=== PATIENT | male | born 1960 | race Caucasian/White ===

== ENCOUNTER 2017-04-04 12:49 | Inpatient (IN) | payer MEDICAID ==
[~2017-04-04] VITALS: Ht 165.1 cm; Wt 83.9 kg
--- NOTE | 2017-04-04 12:51 | NUR ---
PATIENT AMBUALTED TO BED 10.
--- NOTE | 2017-04-04 12:52 | NUR ---
56/M C/O CHEST PAIN RADIATES TO BILATERAL SHOULDER THIS AM .HX HTN & CVA WITH RIGHT SIDED WEAKNESS.DENIES N/V/D; SKIN IS PINK/WARM/DRY; AAOX4 AMB WITH WALKER. LUNGS CLEAR BL; HR EVEN AND REGULAR; PATIENT STATES PAIN OF 0/10 AT THIS TIME; PATIENT POSITIONED FOR COMFORT; HOB ELEVATED; BEDRAILS UP X2; BED DOWN. ER MD MADE AWARE OF PT STATUS.
--- NOTE | 2017-04-04 12:53 | NUR ---
Patient being evaluated by physician at bedside.
[2017-04-04 12:59] VITALS: BP 159/100
[2017-04-04] MEDS ORDERED: ASPI81CT89 PO (13:01)
[2017-04-04] MEDS ORDERED: KETOROLAC 30 MG/ML VIAL IM ONE (13:15)
[2017-04-04 13:47] LABS: BASOPHILS # (AUTO) 0.1 K/uL (0.00-0.22); BASOPHILS % (AUTO) 1.5 % (0.0-2.0); EOSINOPHILS # (AUTO) 0.5 K/uL (0-0.4); EOSINOPHILS % (AUTO) 5.2 % (0.0-4.0); HEMATOCRIT 42.7 % (36-52); HEMOGLOBIN 14.8 g/dL (12.0-18.0); LYMPHOCYTES # (AUTO) 2.6 K/uL (2.0-11.5); LYMPHOCYTES % (AUTO) 26.8 % (20.5-51.1); MEAN CORPUSCULAR HEMOGLOBIN 29 pg (27-31); MEAN CORPUSCULAR HGB CONC 35 g/dL (33-37); MEAN CORPUSCULAR VOLUME 84 fL (80-94); MONOCYTES # (AUTO) 1.3 K/uL (0.8-1.0); NEUTROPHILS # (AUTO) 5.2 K/uL (1.8-7.7); NEUTROPHILS % (AUTO) 53.5 % (42.2-75.2); PLATELET COUNT (AUTO) 271 K/uL (140-450); RED BLOOD CELL COUNT(AUTO) 5.06 MIL/uL (4.20-6.10); WHITE BLOOD COUNT (AUTO) 9.7 K/uL (4.8-10.8)
[2017-04-04 14:08] LABS: ALBUMIN 3.4 g/dL (3.4-5.0); ANION GAP 12.7 (8-16); CARBON DIOXIDE 24.4 mmol/L (21-32); CREATININE 0.7 mg/dL (0.7-1.3); POTASSIUM 4.1 mmol/L (3.5-5.1); TOTAL BILIRUBIN 0.6 mg/dL (0.0-1.0)
[2017-04-04 14:14] LABS: CREATINE KINASE MB 1.2 ng/mL (0-3.6)
[2017-04-04] MEDS ORDERED: ASPIRIN 325 MG TAB PO ONE (14:35)
[2017-04-04] MEDS: NACL 0.9% 1,000 ML IV SCH (15:34)
[2017-04-04] MEDS ORDERED: LORazepam 0.5 MG TAB PO PRN (15:35)
[2017-04-04] MEDS ORDERED: MORPHINE SULFATE 2 MG/ML SYR IV PRN (15:35)
[2017-04-04] MEDS ORDERED: ACETAMINOPHEN 325 MG TAB PO PRN (15:35)
--- NOTE | 2017-04-04 16:03 | NUR ---
Patient will be admitted to care of DR COTA. Admited to TELE. Will go to room 110A. Belongings list completed. Report to MARIELENA DELGADO.
[2017-04-04 16:08] VITALS: BP 163/102
--- NOTE | 2017-04-04 16:08 | NUR ---
RECEIVED PT VIA [employer]. ASSISTED PT TO YELLOW GOWN, SOCKS, BRACELET, AND PLACED FALL PRECAUTION SIGN OUTSIDE THE DOOR. PLACED CYLINDER LOADER. PT STABLE AT THIS TIME. NO S/S OF RESPIRATORY DISTRESS OR DISCOMFORT. B/P 163/102, HR 77, SPO2 97, TEMP 97.8, RR20 AND NO PAIN AT THIS TIME. DX: MILD CHEST PAIN. HX: FALLS AND STROKE 6 MONTHS AGO. IV RIGHT FOREARM 20 DARCY. AOX4. SKIN IS INTACT. PT NEEDS ASSISTANCE WHEN TRANSFERRING AND AMBULATING. CALL LIGHT WITHIN REACH. SAFETY/FALL PRECAUTIONS IN PLACE. WILL CONTINUE TO MONITOR.
[2017-04-04] MEDS ORDERED: HYDROcodone/APAP 7.5/325 MG 1 TAB PO PRN (16:10)
[2017-04-04 16:12] LABS: AMYLASE 46 U/L (25-115); LIPASE 84 U/L (73-393)
[2017-04-04 16:16] LABS: CHOL/HDL RATIO 4.1 (1-4.5); MAGNESIUM 1.8 mg/dL (1.8-2.4)
[2017-04-04 16:35] LABS: APPEARANCE,URINE CLEAR (CLEAR); BILIRUBIN,URINE NEGATIVE (NEGATIVE); BLOOD, URINE NEGATIVE (NEGATIVE); COLOR,URINE YELLOW (YELLOW); LEUKOCYTE ESTERASE ,URINE NEGATIVE (NEGATIVE); NITRITE, URINE NEGATIVE (NEGATIVE); PH,URINE 6.5 (5.0-9.0); UGLUCOSE NEGATIVE (NEGATIVE)
[2017-04-04 16:38] LABS: PHOSPHORUS 2.8 mg/dL (2.5-4.9); THYROID STIMULATING HORMONE < 0.01 uIU/mL (0.34-3.74)
[2017-04-04 16:43] LABS: BARBITURATE, URINE POS. ng/ml (NEG <=200); BENZODIAZEPINE, URINE NEG. ng/mL (NEG <=200); CANNABINOID, URINE NEG. ng/mL (NEG <=50); COCAINE, URINE NEG. ng/mL (NEG <=300); OPIATE, URINE NEG. ng/mL (NEG <=2000); PHENCYCLIDINE SCREEN,URINE NEG. ng/mL (NEG <=25)
--- NOTE | 2017-04-04 16:45 | NUR ---
PT ASKING FOR A PHONE IN THE ROOM AND SOME FOOD. PROVIDED PHONE AND EDUCATED ON HOW TO USE IT. PT ATE A TUNA SANDWICH, WATER, 2% MILK, AND JELLO. PT RESTING AT THIS TIME. CALL LIGHT WITHIN REACH. WILL CONTINUE TO MONITOR.
[2017-04-04] MEDS ORDERED: ENALAPRILAT 2.5 MG/2 ML VIAL IVP SCH (17:30)
--- NOTE | 2017-04-04 18:00 | NUR ---
PT RESTING IN BED. MEDICATIONS ADMINISTERED AND WELL TOLERATED. CALL LIGHT WITHIN REACH. SAFETY/FALL PRECAUTIONS IN PLACE. WILL CONTINUE TO MONITOR.
[2017-04-04 19:00] VITALS: BP 146/92
--- NOTE | 2017-04-04 19:15 | NUR ---
PT STABLE RESTING IN BED. PT ENDORSED TO TOOLROOM ATTENDANT NURSE.
--- NOTE | 2017-04-04 19:16 | NUR ---
RECEIVED BESIDE REPORT FROM DAY SHIFT NURSE DANNY RN, PT STABLE, NO DISTRESS NOTED, IV TO R FA 20G, SL, PATENT, PT ON 3LPM O2 VIA NC, NO SOB, REPORTED HAVING NO PAIN AT THIS MOMENT, INITIAL ASSESSMENT DONE, ALL SAFETY PRECAUTION MET, WILL CONTINUE TO MONITOR.
[2017-04-04 20:00] VITALS: BP 149/89
[2017-04-04] MEDS: SIMVASTATIN 20 MG TAB PO SCH (21:00)
[2017-04-04] MEDS: METOPROLOL 25 MG TAB PO SCH (21:00)
--- NOTE | 2017-04-04 21:00 | NUR ---
DUE MEDICATION GIVEN, PT TOLERATED WELL, NO DISTRESS NOTED, CALL LIGHT WITHIN REACH.
--- NOTE | 2017-04-04 21:25 | NUR ---
PT DAUGHTER CALLED, FLOWER, DAUGHTER TALKED TO PT ON PHONE.
--- NOTE | 2017-04-04 21:51 | NUR ---
PT C/O HEADACHE 07/02, TYLENOL GIVEN, PT TOLERATED WELL, NO DISTRESS NOTED, CALL LIGHT WITHIN REACH, WILL CONTINUE TO MONITOR.
[2017-04-04 22:16] LABS: PROTHROMBIN TIME 10.6 secs (10.8-13.4)
--- NOTE | 2017-04-04 22:51 | NUR ---
CHECKED ON PT, PT SLEEPING, NO DISTRESS NOTED, PT SLEEPING, NO DISTRESS NOTED, CALL LIGHT WITHIN REACH, WILL CONTINUE TO MONITOR.
[2017-04-05] VITALS: BP 141/72
--- NOTE | 2017-04-05 00:02 | NUR ---
CHECKED ON PT, PT SLEEPING, NO DISTRESS NOTED, EASY TO AROUSE, PT STATED HAVING NO PAIN AT THIS MOMENT, CALL LIGHT WITHIN REACH, WILL CONTINUE TO MONITOR.
--- NOTE | 2017-04-05 02:16 | NUR ---
CHECKED ON PT, PT SLEEPING, NO DISTRESS NOTED, CALL LIGHT WITHIN REACH, WILL CONTINUE TO MONITOR.
[2017-04-05 04:00] VITALS: BP 132/73
--- NOTE | 2017-04-05 04:02 | NUR ---
CHECKED ON PT, PT SLEEPING, NO DISTRESS NOTED, PT TOOK OF NC, NO SOB, PO2 AT 96%, PT STABLE, CALL LIGHT WITHIN REACH, WILL CONTINUE TO MONITOR.
--- NOTE | 2017-04-05 04:10 | NUR ---
PT AMBULATED TO BATHROOM AND BACK TO BED, NO DISTRESS NOTED, TOLERATED WELL, CALL LIGHT WITHIN REACH, WILL CONTINUE TO MONITOR.
[2017-04-05 06:31] LABS: BASOPHILS # (AUTO) 0.1 K/uL (0.00-0.22); EOSINOPHILS # (AUTO) 0.7 K/uL (0-0.4); EOSINOPHILS % (AUTO) 6.6 % (0.0-4.0); HEMATOCRIT 41.6 % (36-52); HEMOGLOBIN 14.3 g/dL (12.0-18.0); LYMPHOCYTES # (AUTO) 2.7 K/uL (2.0-11.5); LYMPHOCYTES % (AUTO) 24.3 % (20.5-51.1); MEAN CORPUSCULAR HEMOGLOBIN 29 pg (27-31); MEAN CORPUSCULAR HGB CONC 35 g/dL (33-37); MEAN CORPUSCULAR VOLUME 85 fL (80-94); MONOCYTES # (AUTO) 1.6 K/uL (0.8-1.0); MONOCYTES % (AUTO) 14.2 % (1.7-9.3); NEUTROPHILS # (AUTO) 6.1 K/uL (1.8-7.7); NEUTROPHILS % (AUTO) 53.9 % (42.2-75.2); PLATELET COUNT (AUTO) 239 K/uL (140-450); RED BLOOD CELL COUNT(AUTO) 4.89 MIL/uL (4.20-6.10); RED CELL DISTRIBUTION WIDTH 11.9 % (11.6-13.7); WHITE BLOOD COUNT (AUTO) 11.2 K/uL (4.8-10.8)
[2017-04-05 06:33] LABS: ANION GAP 12.4 (8-16); CARBON DIOXIDE 25.5 mmol/L (21-32); CREATININE 0.7 mg/dL (0.7-1.3); POTASSIUM 3.9 mmol/L (3.5-5.1)
--- NOTE | 2017-04-05 07:15 | NUR ---
ENDORSED PLAN OF CARE TO DAY SHIFT NURSE OCTAVIA PEGUERO, PT STABLE, NO DISTRESS NOTED, CALL LIGHT WITHIN REACH.
--- NOTE | 2017-04-05 07:20 | NUR ---
RECEIVED REPORT FROM AUTOMOTIVE SOFTWARE ENGINEER NURSE. PT RESTING I BED. AWAKE. AOX4. IV RIGHT FA #20G NS 20ML/HR. 3L NC. NO S/S OR RESPIRATORY DISTRESS OR DISCOMFORT NOTED. PT STABLE AT THIS TIME. CALL LIGHT WITHIN REACH. BED IN LOWEST POSITION. SAFETY/FALL PRECAUTIONS IN PLACE. WILL CONTINUE TO MONITOR.
--- NOTE | 2017-04-05 07:33 | NUR ---
AWAKE AND ALERT RESPONSIVE PATIENT C/O NASAL DRYNESS WITH SUPPLEMENTAL OXYGEN USE ADDED HUMIDIFIER
[2017-04-05 08:00] VITALS: BP 152/97
[2017-04-05] MEDS: ASPIRIN 325 MG TAB PO SCH (08:31)
[2017-04-05] MEDS: DOCUSATE SODIUM 100 MG GELCAP PO SCH (08:32)
[2017-04-05] MEDS: METOPROLOL 25 MG TAB PO SCH ×2 (08:34→21:29)
[2017-04-05] MEDS: LISINOPRIL 5 MG TAB PO SCH (08:35)
[2017-04-05] MEDS ORDERED: LISINOPRIL 5 MG TAB PO SCH (09:00)
--- NOTE | 2017-04-05 10:10 | NUR ---
PT SLEEPING AT THIS TIME. PT STABLE. NO S/S OF RESPIRATORY DISTRESS OR DISCOMFORT. CALL LIGHT WITHIN REACH. SAFETY/FALL PRECAUTIONS IN PLACE. WILL CONTINUE TO MONITOR.
[2017-04-05 10:11] LABS: T4 (THYROXINE) 8.3 ug/dL (4.5-12.0)
[2017-04-05 12:00] VITALS: BP 132/72
--- NOTE | 2017-04-05 13:10 | NUR ---
WALKED PATIENT TO SHOWER ROOM AT THIS TIME.
--- NOTE | 2017-04-05 13:59 | NUR ---
PT SLEEPING IN BED AT THIS TIME. NO S/S OF RESPIRATORY DISTRESS OR DISCOMFORT. SAFETY/FALL PRECAUTIONS ARE IN PLACE. CALL LIGHT WITHIN REACH. WILL CONTINUE TO MONITOR.
--- NOTE | 2017-04-05 15:30 | NUR ---
PT SLEEPING AT THIS TIME. BED IN LOWEST POSITION. CALL LIGHT WITHIN REACH. SAFETY/FALL PRECAUTIONS ARE IN PLACE. NO S/S OF RESPIRATORY DISTRESS AND DISCOMFORT. WILL CONTINUE TO MONITOR.
[2017-04-05] MEDS: NACL 0.9% 1,000 ML IV SCH (15:34)
[2017-04-05 16:00] VITALS: BP 148/86
--- NOTE | 2017-04-05 17:30 | NUR ---
PT RESTING IN BED. DINNER TRAY ARRIVED AND EATING. PT STABLE AT THIS TIME. NO S/S OF RESPIRATORY DISTRESS OR DISCOMFORT NOTED. SAFETY/FALL PRECAUTIONS ARE IN PLACE. CALL LIGHT WITHIN REACH. WILL CONTINUE TO MONITOR.
--- NOTE | 2017-04-05 19:10 | NUR ---
PT ENDORSED TO TICKET BROKER NURSE. PT STABLE AT THIS TIME. NO S/S OF RESPIRATORY DISTRESS OR DISCOMFORT. CALL LIGHT WITHIN REACH. BED IN LOWEST POSITION.
--- NOTE | 2017-04-05 19:11 | NUR ---
RECEIVED BEDSIDE REPORT FROM DAY SHIFT NURSE OCTAVIA RN, PT STABLE, NO DISTRESS NOTED, IV TO R AC 20G RUNNING NS @ 20 ML/HR, INFUSING WELL, PT ON ROOM AIR AT THIS MOMENT, PT TOOK OFF HIS NC, O2 SAT AT 96%, NO SOB, DENIES ANY PAIN, INITIAL ASSESSMENT DONE, ALL SAFETY PRECAUTION MET, CALL LIGHT WITHIN REACH, FAMILY BY BEDSIDE, WILL CONTINUE TO MONITOR.
[2017-04-05 20:00] VITALS: BP 135/86
[2017-04-05] MEDS: SIMVASTATIN 20 MG TAB PO SCH (21:29)
--- NOTE | 2017-04-05 21:29 | NUR ---
DUE MEDICATION GIVEN, PT TOLERATED WELL, NO DISTRESS NOTED, CALL LIGHT WITHIN REACH, WILL CONTINUE TO MONITOR.
--- NOTE | 2017-04-05 22:10 | NUR ---
PT AMBULATED TO THE BATHROOM AND BACK TO BED, TOLERATED WELL, NO DISTRESS NOTED, NO SOB, CALL LIGHT WITHIN REACH, WILL CONTINUE TO MONITOR.
[2017-04-06] VITALS: BP 128/64
--- NOTE | 2017-04-06 00:05 | NUR ---
CHECKED ON PT, PT SLEEPING, NO DISTRESSES NOTED, PT TOOK OFF HIS NC, O2 SAT AT 97%, NO SOB, CALL LIGHT WITHIN REACH, WILL CONTINUE TO MONITOR.
--- NOTE | 2017-04-06 02:05 | NUR ---
PT SLEEPING, NO DISTRESS NOTED, CALL LIGHT WITHIN REACH,WILL CONTINUE TO MONITOR.
[2017-04-06 04:00] VITALS: BP 148/75
--- NOTE | 2017-04-06 04:10 | NUR ---
CHECKED ON PT, PT SLEEPING, EASILY AROUSED, PT STABLE, NO DISTRESS NOTED, NO SOB, ON ROOM AIR, CALL LIGHT WITHIN REACH, WILL CONTINUE TO MONITOR.
[2017-04-06 06:18] LABS: BASOPHILS # (AUTO) 0.3 K/uL (0.00-0.22); BASOPHILS % (AUTO) 3.3 % (0.0-2.0); EOSINOPHILS # (AUTO) 0.7 K/uL (0-0.4); EOSINOPHILS % (AUTO) 7.9 % (0.0-4.0); LYMPHOCYTES # (AUTO) 2.8 K/uL (2.0-11.5); LYMPHOCYTES % (AUTO) 31.7 % (20.5-51.1); MEAN CORPUSCULAR HEMOGLOBIN 30 pg (27-31); MEAN CORPUSCULAR HGB CONC 35 g/dL (33-37); MEAN CORPUSCULAR VOLUME 85 fL (80-94); MONOCYTES # (AUTO) 1.3 K/uL (0.8-1.0); NEUTROPHILS # (AUTO) 3.6 K/uL (1.8-7.7); NEUTROPHILS % (AUTO) 42.1 % (42.2-75.2); PLATELET COUNT (AUTO) 234 K/uL (140-450); RED BLOOD CELL COUNT(AUTO) 4.71 MIL/uL (4.20-6.10); RED CELL DISTRIBUTION WIDTH 12.3 % (11.6-13.7); WHITE BLOOD COUNT (AUTO) 8.7 K/uL (4.8-10.8)
[2017-04-06 06:49] LABS: CARBON DIOXIDE 26.1 mmol/L (21-32); CREATININE 0.8 mg/dL (0.7-1.3); POTASSIUM 4.1 mmol/L (3.5-5.1)
[2017-04-06 07:03] LABS: PHOSPHORUS 3.3 mg/dL (2.5-4.9)
--- NOTE | 2017-04-06 07:10 | NUR ---
PATIENT IS ASLEEP AT THIS TIME BUT AROUSABLE TO NAME. PATIENT SHOWS NO SIGNS OF CHEST PAIN AT THIS TIME. PATIENT SHOWS MILD WEAKNESS ON RIGHT SIDE OF HIS BODY. PATIENT DOES NOT SHOW ANY SIGNS OF RESPIRATORY DISTRESS, RESPIRATORY DEPRESSION AT THIS TIME. INSTRUCTED PATIENT TO CALL IF HE NEEDS ANYTHING. CALL LIGHT WITHIN REACH OF PATIENT. PATIENT HAS FALL RISK SOCKS AND SIGNS POSTED OUTSIDE DOOR. BED IN LOWEST POSITION AT THIS TIME. WILL CONTINUE TO MONITOR PATIENT.
--- NOTE | 2017-04-06 07:20 | NUR ---
ENDORSED PLAN OF CARE TO DAY SHIFT NURSE TONY RN, PT STABLE, NO DISTRESS NOTED, CALL LIGHT WITHIN REACH.
[2017-04-06 08:00] VITALS: BP 138/66
[2017-04-06] MEDS: DOCUSATE SODIUM 100 MG GELCAP PO SCH (09:00)
--- NOTE | 2017-04-06 09:05 | NUR ---
PATIENT HAS BEEN SCREENED AND CATEGORIZED MODERATE NUTRITION RISK. PATIENT WILL BE SEEN WITHIN 3-5 DAYS OF ADMISSION. 04/06/17-04/08/[address]
[2017-04-06] MEDS: ASPIRIN 325 MG TAB PO SCH (09:25)
[2017-04-06] MEDS: METOPROLOL 25 MG TAB PO SCH (09:25)
[2017-04-06] MEDS: LISINOPRIL 5 MG TAB PO SCH (09:25)
[2017-04-06 12:00] VITALS: BP 143/71
--- NOTE | 2017-04-06 12:00 | NUR ---
PATIENT IS ASLEEP AT THIS TIME. RESPIRATIONS ARE EVEN AND UNLABORED. WILL CONTINUE TO MONITOR PATIENT.
--- NOTE | 2017-04-06 14:50 | NUR ---
PATIENT IS AWAKE WATCHING TELEVISION. PATIENT DOES NOT COMPLAIN OF ANY CHEST PAIN. RESPIRATIONS ARE EVEN AND UNLABORED. NO SIGNS OF RESPIRATORY DISTRESS. WILL CONTINUE TO MONITOR PATIENT.
[2017-04-06 16:00] VITALS: BP 149/85
[2017-04-06] MEDS: NACL 0.9% 1,000 ML IV SCH (16:00)
[2017-04-06] MEDS ORDERED: LISI-424 PO (16:32)
[2017-04-06] MEDS ORDERED: SIMV20TA6 PO (16:32)
[2017-04-06] MEDS ORDERED: METHIMAZOLE 5 MG TAB PO SCH (17:30)
--- NOTE | 2017-04-06 19:17 | NUR ---
GAVE REPORT TO NIGHTSHIFT NURSE AT BEDSIDE. PATIENT IS IN STABLE CONDITION.
--- NOTE | 2017-04-06 19:20 | NUR ---
RECEIVED PT FROM TONY PEGUERO PT IS AAOX4 AMBULATES WITH STRAP MAKING MACHINE OPERATOR LEFT SIDE WEAKNESS S/P STROKE ON TELEMETRY SR , IV ON LEFT HAND INFUSING WELL DENIES ANY DISCOMFORT AT THIS TIME INITIAL ASSESSMENT DONE
[2017-04-06 20:00] VITALS: BP 153/83
[2017-04-06] MEDS: SIMVASTATIN 20 MG TAB PO SCH (20:45)
[2017-04-06] MEDS ORDERED: METOPROLOL 50 MG TAB PO SCH (21:00)
--- NOTE | 2017-04-06 22:00 | NUR ---
PT IS ASSISTED TO THE RESTROOM VOIDING WELL ON TELE SR NOT DISTRESS NOTED
[2017-04-07] VITALS: BP 158/80
--- NOTE | 2017-04-07 | NUR ---
PT SLEEPING WELL ON TELE SB REMAIN STABLE NOT CHEST PAIN NOTED
[2017-04-07 04:00] VITALS: BP 138/67
--- NOTE | 2017-04-07 04:00 | NUR ---
PT REMAIN STABLE HAS BEEN ASSISTED TO THE RESTROOM VOIDING WELL ON TELEMETRY SB
--- NOTE | 2017-04-07 06:09 | NUR ---
PT AMBULATES TO THE RESTROOM VOIDING WELL DENIES ANY PAIN ON TELEMETRY SB 56
[2017-04-07 06:30] LABS: BASOPHILS # (AUTO) 0.1 K/uL (0.00-0.22); BASOPHILS % (AUTO) 1.3 % (0.0-2.0); EOSINOPHILS # (AUTO) 0.6 K/uL (0-0.4); EOSINOPHILS % (AUTO) 6.2 % (0.0-4.0); HEMOGLOBIN 14.5 g/dL (12.0-18.0); LYMPHOCYTES # (AUTO) 2.5 K/uL (2.0-11.5); LYMPHOCYTES % (AUTO) 26.5 % (20.5-51.1); MEAN CORPUSCULAR HEMOGLOBIN 29 pg (27-31); MEAN CORPUSCULAR HGB CONC 35 g/dL (33-37); MEAN CORPUSCULAR VOLUME 84 fL (80-94); MONOCYTES % (AUTO) 10.7 % (1.7-9.3); NEUTROPHILS # (AUTO) 5.4 K/uL (1.8-7.7); NEUTROPHILS % (AUTO) 55.3 % (42.2-75.2); PLATELET COUNT (AUTO) 262 K/uL (140-450); RED BLOOD CELL COUNT(AUTO) 4.99 MIL/uL (4.20-6.10); RED CELL DISTRIBUTION WIDTH 11.7 % (11.6-13.7); WHITE BLOOD COUNT (AUTO) 9.6 K/uL (4.8-10.8)
--- NOTE | 2017-04-07 07:05 | NUR ---
RECEIVED PATIENT REPORT AT BEDSIDE FROM NIGHTSHIFT NURSE. PATIENT IS ASLEEP BUT AROUSABLE. PATIENT SHOWS NO SIGNS OF PAIN. PATIENT RESPIRATIONS ARE EQUAL AND UNLABORED. PATIENT IS IN STABLE CONDITION AT THIS TIME. UPDATED BOARD AND CALL LIGHT WITHIN REACH. BED LOWERED AND SIGNS POSTED OUTSIDE FOR FALL RISK. WILL CONTINUE TO MONITOR PATIENT.
[2017-04-07 07:49] LABS: ANION GAP 12.8 (8-16); CARBON DIOXIDE 24.4 mmol/L (21-32); CREATININE 0.7 mg/dL (0.7-1.3); POTASSIUM 4.2 mmol/L (3.5-5.1)
[2017-04-07 07:59] VITALS: BP 148/84
[2017-04-07 08:11] LABS: FREE T4 (FREE THYROXINE) 1.51 ng/dL (0.76-1.46); MAGNESIUM 1.9 mg/dL (1.8-2.4); PHOSPHORUS 3.3 mg/dL (2.5-4.9); THYROID STIMULATING HORMONE < 0.01 uIU/mL (0.34-3.74)
[2017-04-07] MEDS: ASPIRIN 325 MG TAB PO SCH (08:17)
[2017-04-07] MEDS: LISINOPRIL 5 MG TAB PO SCH (08:18)
[2017-04-07] MEDS: DOCUSATE SODIUM 100 MG GELCAP PO SCH (08:21)
[2017-04-07] MEDS ORDERED: ATENOLOL 25 MG TAB PO SCH (09:00)
[2017-04-07] MEDS ORDERED: METHIMAZOLE 5 MG TAB PO SCH (09:00)
--- NOTE | 2017-04-07 12:00 | NUR ---
PATIENT IS RESTING IN BED. NO COMPLAINS OF PAIN. NO RESPIRATORY DEPRESSION OR DISTRESS. WILL CONTINUE TO MONITOR PATIENT.
[2017-04-07 12:16] VITALS: BP 145/90
[2017-04-07] MEDS ORDERED: ATEN25TA2 PO (12:52)
[2017-04-07] MEDS ORDERED: LISI5TAB18 PO (12:55)
--- NOTE | 2017-04-07 14:15 | NUR ---
PATIENT UNDERSTOOD ALL DISCHARGE INSTRUCTIONS AND PRESCRIPTIONS GIVEN. PATIENT SIGNED ALL DOCUMENTS AND VERBALIZED UNDERSTANDING. PATIENT GATHERED ALL BELONGINGS. DISCONTINUED IV AND CUT WRISTBANDS OFF PATIENT. PATIENT LEFT UNIT WITH FAMILY MEMBERS AND ALL OF BELONGINGS. PATIENT LEFT IN STABLE CONDITION.
--- NOTE | 2017-04-07 15:00 | NUR ---
PHYSICAL THERAPY CO-SIGN The Physical Therapy Progress Notes documented by Die Designer Apprentice have been reviewed. I CONCUR W/PERPETUAL INVENTORY CLERK NOTE; Pt WAS SHOWING PROGRESS WITH POC Reviewed/Co-Signed by: Marry De La Fuente, PT Documentation Done by: CY JOHNSON PTA Addendum: 04/08/17 at 1139 by Marry De La Fuente PT Amended: Links added.
== END 2017-04-07 14:15 | disposition home or self-care (01) | DRG 243 ==
LOC: MED 12:49 → MTU 15:34
PROVIDERS: ADMIT Student in an Organized Health Care Education/Training Program; ATTEND Student in an Organized Health Care Education/Training Program
DX: K21.9 Gastro-esophageal reflux disease without esophagitis (principal); I69.954 Hemiplegia and hemiparesis following unspecified cerebrovascular disease affecting left non-dominant side; I10 Essential (primary) hypertension; M94.0 Chondrocostal junction syndrome [Tietze]; E66.9 Obesity, unspecified; H02.402 Unspecified ptosis of left eyelid; F17.210 Nicotine dependence, cigarettes, uncomplicated; E78.00 Pure hypercholesterolemia, unspecified; I25.10 Atherosclerotic heart disease of native coronary artery without angina pectoris; E11.9 Type 2 diabetes mellitus without complications; E05.80 Other thyrotoxicosis without thyrotoxic crisis or storm; Z68.30 Body mass index [BMI] 30.0-30.9, adult; Z79.82 Long term (current) use of aspirin; Z82.49 Family history of ischemic heart disease and other diseases of the circulatory system
CPT/HCPCS: 36415; 70450; 71045; 76536; 80048; 80053; 80305; 81003; 82150; 82550; 82553; 83036; 83690; 83721; 83735; 83880; 84100; 84436; 84439; 84443; 84479; 84484; 85025; 85610; 85730; 87081; 87086; 93005; 96372; 97110; 97116; 97140; 97530; 99285; J1885; J3490; J7030; Q0092